=== PATIENT | female | born 1980 | race Caucasian/White ===

== ENCOUNTER 2017-07-04 11:17 | Emergency (ER) | payer OTHER ==
[~2017-07-04] VITALS: Ht 167.6 cm; Wt 200.0 kg
[~2017-07-04 11:17] MED LIST: ALPR0.25 PO; ASPI-496 PO; ATEN50TA41 PO; CANA100T PO; CHOL100015 PO; CITA10TA8 PO; CITA20TA9 PO; IRON15TA3 PO; LEVO1TAB25; LIRA0.6P SQ; LISI2.5T PO; METF100010 PO; NIAC10002 PO; OMEP40CA6 PO; PRAS50CA PO; ROSU5TAB PO; SULF1TAB23 PO
[2017-07-04 11:20] VITALS: BP 151/92
[2017-07-04] MEDS ORDERED: KETOROLAC 30 MG/1 ML ONE (11:21)
[2017-07-04] MEDS ORDERED: KETOROLAC 30 MG/1 ML IVPush ONE (11:30)
[2017-07-04] MEDS ORDERED: EMPA10TA PO (11:37)
== END 2017-07-04 13:09 | disposition home or self-care (01) ==
LOC: ED 11:33
DX: S86.912A Strain of unspecified muscle(s) and tendon(s) at lower leg level, left leg, initial encounter (principal); X58.XXXA Exposure to other specified factors, initial encounter; Y93.02 Activity, running; Y92.410 Unspecified street and highway as the place of occurrence of the external cause; Y99.9 Unspecified external cause status
CPT/HCPCS: 73610; 96374; 99284; J1885

== ENCOUNTER → 2017-09-18 | Outpatient (CLI) | payer OTHER ==
[~2017-09-18] MED LIST changes: +EMPA10TA PO
== END | disposition home or self-care (01) ==
LOC: CFH 14:52
PROVIDERS: ATTEND Nurse Practitioner Primary Care
DX: E03.9 Hypothyroidism, unspecified (principal); E55.9 Vitamin D deficiency, unspecified; E11.65 Type 2 diabetes mellitus with hyperglycemia; E78.2 Mixed hyperlipidemia; E61.1 Iron deficiency; R53.83 Other fatigue; R00.2 Palpitations; R01.1 Cardiac murmur, unspecified; F06.31 Mood disorder due to known physiological condition with depressive features; I10 Essential (primary) hypertension; M25.561 Pain in right knee; Z79.899 Other long term (current) drug therapy
CPT/HCPCS: 76536